=== PATIENT | male | born 1975 | race Caucasian/White ===

== ENCOUNTER 2022-11-17 13:20 | Emergency (ER) | payer BC ==
[2022-11-17] MEDS ORDERED: Bacitracin Oint 1 GM U/D Packet TOP ONE (14:07)
== END 2022-11-17 14:29 | disposition home or self-care (01) ==
LOC: DL.ED 13:20
DX: S60.352A Superficial foreign body of left thumb, initial encounter (principal); F17.210 Nicotine dependence, cigarettes, uncomplicated; W45.0XXA Nail entering through skin, initial encounter
CPT/HCPCS: 99282; A9270-GY